=== PATIENT | female | born 1960 ===

== ENCOUNTER 2016-05-22 12:50 | Observation (INO) | payer MEDICARE, OTHER ==
[2016-05-22 13:23] LABS: Hematocrit 36.7 % (37.0-47.0); Hemoglobin 11.2 gm/dL (12.5-16.0); Mean Cell Volume 92.2 fl (78-100); Mean Corpuscular Hemoglobin 28.1 pg (27-31); Mean Corpuscular Hgb Conc 30.5 g/dl (32-36); Mean Platelet Volume 11.9 fl (6.0-9.5); Neutrophil % 48.6 % (42-75.0); Platelet Count 139 K/mm3 (150-450); Red Blood Count 3.98 M/mm3 (4.2-5.4); Red Cell Distribution Width 14.3 % (11.5-14.0); White Blood Count 6.2 K/mm3 (4.0-10.5)
[2016-05-22 13:31] LABS: INR 0.97 INR (0.90-1.10); Prothrombin Time (Patient) 10.1 Seconds (9.4-11.4)
[2016-05-22 13:38] LABS: BUN/Creatinine Ratio 18.6 (9.0-21.6); Blood Urea Nitrogen 19 mg/dL (3-23); Glucose * 94 mg/dL (70-110); Sodium 145 mmol/L (132-142)
[2016-05-22 13:39] LABS: ALT 18 U/L (19-67); AST 17 U/L (0-48); Albumin * 3.3 gm/dl (3.4-5.0); Alkaline Phosphatase * 78 U/L (50-170); Anion Gap 13.7 mmol/L (6.8-13.8); Bilirubin, Total 0.2 mg/dL (0.0-1.1); Ca. Corrected For Albumin 8.2 mg/dL (8.4-10.2); Carbon Dioxide 27.7 mmol/L (24-32.6); Chloride 108 mmol/L (97-106); Potassium 4.4 mmol/L (3.4-4.6); Total Protein 6.3 gm/dL (6.2-8.2); Troponin I Less than 0.017 ng/ml (0.00-0.10)
[2016-05-22] MEDS ORDERED: NITROGLYCERIN 0.4 MG/TAB BTL SL ONE ×3 (13:59→14:18)
--- NOTE | 2016-05-22 14:05 | ERNOTE ---
Chest Pain/Cardiac HPI Chief Complaint: Chest Pain Time Seen by Provider: 05/22/16 13:51 Source: patient Exam Limitations: no limitations Immunizations: IMMUNIZATION HX Immunizations Up to Date Yes History of Influenza Vaccine Yes Hx Pneumococcal Vaccination Yes Allergies/Adverse Reactions: Allergies aspirin Allergy (Verified 05/22/16 13:06) Hives Narrative: Patient is here for pain below her left breast that woke her up in the night. She has some nausea with it, it reminds her of the symptoms she had before she had a stent placed a few years ago. She is being followed by a route specialist in [place] Date (Duration): 05/22/16 Time (Timing): 03:30 Timing: constant - pressure with intermittent sharp pain Location: left chest Chest Pain Radiation: no radiation Activities at Onset: none, sleep Modifying Factors - Improves: Present: nothing Modifying Factors - Worsens: Present: nothing Nitro Today/Relief: no nitro taken today Aspirin Treatment Today: no aspirin today - is allergic Associated Symptoms: Present: nausea. Absent: headache, dizziness, shortness of breath, diaphoresis, fever/chills, vomiting, abdominal pain Prior Chest Pain/Cardiac Workup: Reports: prior chest pain, heart attack Review of Systems - Review of Systems Constitutional: Absent: recent illness, fever ENT: Absent: nose congestion, sore throat Respiratory: Absent: shortness of breath Cardiology: Present: See HPI, chest pain Gastrointestinal/Abdominal: Present: nausea. Absent: vomiting, diarrhea, abdominal pain Neurological: Absent: headache - Patient's Past Medical History Patient History - Medical: Diabetes Type 2, Other Patient History - Cardiac/Respiratory: Coronary Heart Disease Patient History - Cancer: Cervical, Other Patient History - Surgical Procedures: Cardiac stent, Hysterectomy Patient History - Other: None LMP (females 10-50): Menopausal - Social History Living Situations: home Abuse History: No History of abuse Psych History: No pertinent hx Smoking Status: Former smoker Alcohol Use: rarely Drug Use: none - Immunizations Immunizations Up to Date: Yes Hx Pneumococcal Vaccination: Yes History of Influenza Vaccine: Yes Physical Exam - Physical Exam General Appearance: Present: wd/wn, alert, no apparent distress Eye Exam: Normal inspection: bilateral, PERRL: bilateral Respiratory: Present: no respiratory distress, normal breath sounds, no accessory muscle use, chest nontender, lungs clear Cardiovascular/Chest: Present: regular rate, rhythm, no murmur Gastrointestinal/Abdominal: Present: normal bowel sounds, nontender, nondistended, soft Extremity Exam: Present: no edema Neurological Exam: Present: alert, oriented, normal mood/affect Skin Exam: Present: normal color, warm/dry ED Progress - Results and Orders Patient's Lab Results:: I have reviewed the patient's lab results. - Vital Signs Patient's Vital Signs:: I have reviewed the patient's vital signs. Vital Signs: Vital Signs 05/22/16 05/22/16 12:57 13:10 Temperature 36.2 C L Pulse Rate 67 63 Respiratory 17 Rate Blood Pressure 126/71 O2 Sat by Pulse 99 Oximetry - EKG EKG: NSR, other - no acute findings EKG read: Interp. by me - X-Ray X-Ray #1 X-Ray: chest - chronic changes, right basilar nodule Interpretation: Reviewed by me - Progress/Reassessment Chief Complaint: Chest Pain Progress Note-Subjective: 05/22/16 14:09 pain better after first nitro 05/22/16 15:26 pain almost resolved, discussed admission here for observation vs transferring to [place] where her route specialist is, decided on admission here 05/22/16 15:[address] Powers,okay to admit for chest pain rule out Departure - Departure Clinical Impression: Chest pain Qualifiers: Chest pain type: precordial pain Qualified Code(s): R07.2 - Precordial pain Disposition: [facility] Condition: Good
--- OUTSIDE RECORDS SUMMARY | 2016-05-22 16:17 | XMS REPORT | Continuity of Care Document ---
:1960 Author Organization [facility] ([facility]) Address [address] [place] [address] Phone [phone] Care Team Providers Name Role Phone Zachery Jose Primary Care Provider [phone] Source Comments This disclosure is being made pursuant to the Care Everywhere program, applicable federal and state laws, and may not contain all informaitonavailable regarding this patient.[facility] ([facility]) Active Allergies and Adverse Reactions Allergen Noted Date Severity Reactions Comments Aspirin Respiratory Distress,Angioedema,Nausea & Vomiting Current Medications Prescription Sig. Disp. Refills Start Date End Date Status estrogens, conjugated take 0.3 mg by mouth Active (PREMARIN) 0.3 mg daily. tablet travoprost (TRAVATAN) Instill 1 Drop onto Active 0.004 % Drop both eyes at bedtime furosemide (LASIX) 40 Take 40 mg by mouth Active mg tablet daily. gabapentin Take 2 Tabs by mouth 180 Tab 11 09/27/2009 Active (NEURONTIN) 600 mg 3 times daily. tablet Indications: Neuropathic Pain prasugrel (EFFIENT) Take 10 mg by mouth Active 10 mg tablet daily fentanyl 25 mcg/hr Apply 25 mcg on the Active patch skin every 72 hours cyclobenzaprine 10 mg Take 20 mg by mouth Active tablet at bedtime docusate 100 mg Take 100 mg by mouth Active capsule 2 times daily as needed levothyroxine 150 mcg Take 150 mcg by mouth Active tablet every morning before breakfast lisinopril 10 mg Take 10 mg by mouth Active tablet daily metoPROLol tartrate Take 25 mg by mouth 2 Active 25 mg tablet times daily insulin regular Inject subcutaneously Active (HumuLIN R) 100 3 times daily before unit/mL injection meals vial omeprazole 20 mg Take 20 mg by mouth 2 Active enteric coated times daily capsule oxyCODONE-acetaminoph Take 2 tablets by Active en 10-325 mg per mouth 2 times daily tablet potassium chloride 10 Take 20 mEq by mouth Active mEq XR tablet daily sennosides 8.6 mg Take 1 tablet by Active tablet mouth daily as needed simvastatin 40 mg Take 40 mg by mouth Active tablet every evening donepezil 10 mg Take 10 mg by mouth Active tablet at bedtime fluticasone 50 Use 2 Sprays into Active mcg/Actuation nasal both nostrils daily spray as needed isosorbide Take 60 mg by mouth Active mononitrate 60 mg CR Every morning tablet nitroglycerin 0.[address] 0.4 mg under Active SL tablet the tongue every 5 minutes as needed vilazodone (VIIBRYD) Take 40 mg by mouth Active 40 mg tablet daily cyanocobalamin Inject 1,000 mcg Active (VITAMIN B-12) 1000 intramuscularly every mcg/mL injection month Active Problems Problem Noted Date Essential hypertension 12/27/2014 Coronary artery disease without angina pectoris 12/27/2014 Overview: Patient presented to [place], [place] for fatigue evaluation. Stress test abnormal. S/p PCI to LAD and OM. Hyperlipidemia with target LDL less than 70 12/27/2014 Hypothyroidism 12/27/2014 Neuropathic pain 12/27/2014 Chronic radicular low back pain 12/27/2014 S/P lumbar spinal fusion 12/03/2008 Resolved Problems Problem Noted Date Resolved Date Type 2 diabetes mellitus with hyperglycemia 12/27/2014 12/27/2014 Nonspecific chest pain 12/26/2014 12/27/2014 Neck and shoulder pain 12/26/2014 12/27/2014 Surgical wound infection 12/20/2008 12/27/2014 Hypotension 12/20/2008 12/20/2008 Anemia 12/20/2008 12/27/2014 Hypomagnesemia 12/20/2008 12/27/2014 Protein calorie malnutrition 12/20/2008 12/27/2014 Lactic acidosis 12/20/2008 12/20/2008 Gram-positive bacteremia 12/19/2008 12/27/2014 Acute respiratory insufficiency 12/03/2008 12/27/2014 Diabetes mellitus 12/03/2008 12/27/2014 Hypertension 12/03/2008 12/27/2014 Immunizations Name Dates Previously Given Next Due Influenza 12/29/2008 Pneumococcal Polysaccharide, PPSV23 (Pneumovax 23) 12/26/2008 Social History Tobacco Use Types Packs/Day Years Used Date Former Smoker Cigarettes 2 25 Smokeless Tobacco: Never Used Tobacco Cessation:Counseling Given: Yes Comments:quit smoking 7 years ago Alcohol Use Drinks/Week oz/Week Comments No Last Filed Vital Signs Vital Sign Reading Time Taken Blood Pressure 134/71 01/25/2015 3:29 PM HANDLE AND VENT MACHINE OPERATOR Pulse 69 01/25/2015 3:29 PM HANDLE AND VENT MACHINE OPERATOR Temperature 35.9 C (96.6 F) 01/25/2015 3:29 PM HANDLE AND VENT MACHINE OPERATOR Respiratory Rate 14 12/27/2014 2:18 PM CDT Height 1.71 m (5' 7.32") 01/25/2015 3:29 PM HANDLE AND VENT MACHINE OPERATOR Weight 80.8 kg (178 lb 2.1 oz) 01/25/2015 3:29 PM HANDLE AND VENT MACHINE OPERATOR Body Mass Index 27.63 01/25/2015 3:29 PM HANDLE AND VENT MACHINE OPERATOR Oxygen Saturation 96% 12/27/2014 2:18 PM CDT Plan of Care Date Type Specialty Providers Description 06/07/2016 Appointment Diabetes Services Default, Other Bill[facility] - [facility] [address] [place] [address] [phone] (Fax) Chief Comp: Patient Latanya Gonzales PA-C [address] [place] [address] [phone] (Fax) Reported Reason For Visit 06/07/2016 Appointment Diabetes Services Default, Other Billg - [address] [address] [place] [address] [phone] (Fax) Chief Comp: Patient Leta Enciso, RD LD [address] [place] [address] [phone] (Fax) Reported Reason For Visit Health Maintenance Due Date Last Done Comments HCV Screening 1960 Hepatitis B Vaccine (1 of 3 - Primary 1960 Series) Tdap Vaccine 1972 DIABETIC: Microalbumin 09/24/1979 MMR Vaccine 09/24/1979 Td Vaccine 09/24/1979 Cervical Cancer Screening 09/24/1991 Mammogram 2001 DIABETIC: Foot Exam 09/05/2010 DIABETIC: Retinal Eye Exam 09/05/2010 Colonoscopy 2011 DIABETIC: Hemoglobin A1C 06/28/2015 12/27/2014, 12/26/2014 Influenza Vaccine: Seasonal (#1) 10/24/2015 12/29/2008 DIABETIC: Cholesterol 12/28/2015 12/27/2014 Diabetic: Hdl 12/28/2015 12/27/2014 Diabetic: Ldl 12/28/2015 12/27/2014 DIABETIC: Triglycerides 12/28/2015 12/27/2014, 12/29/1997 Pneumococcal Vaccine Completed 12/26/2008 Results from Last 3 Months Not on file
--- OUTSIDE RECORDS SUMMARY | 2016-05-22 16:17 | XMS REPORT | Continuity of Care Document ---
:1960 Author Organization [facility] [place] [address] Care Team Providers Name Role Phone Jose Bingham Primary Care Provider [phone] Source Comments This disclosure is being made pursuant to the [employer] program and maynot contain all information available regarding this patient.[facility] Active Allergies and Adverse Reactions Allergen Noted Date Severity Reactions Comments Aspirin 10/17/2014 High Shortness Of Breath Bee Venom 10/17/2014 High Swelling Current Medications Be aware that medications may not be up to date as of this document. Alwaysverify current medications with the patient. Prescription Sig. Disp. Refills Start Date End Date Status estrogens, conjugated, Take 0.3 mg by Active (PREMARIN) 0.3 MG mouth daily. tablet vitamin B-12 Inject 1,000 mcg Active (CYANOCOBALAMIN) 1000 as directed MCG/ML injection every 30 (thirty) days. cyclobenzaprine Take 10 mg by Active (FLEXERIL) 10 MG mouth 3 (three) tablet times daily. Instructino: Take 1 tab po bid and 2 tabs po at bedtime.Patient states that she is just taking them at bedtime due to sleepiness During day. diclofenac (VOLTAREN) Take 75 mg by Active 75 MG EC tablet mouth 2 (two) times daily. donepezil (ARICEPT) 10 Take 10 mg by Active MG tablet mouth daily with breakfast. furosemide (LASIX) 40 Take 40 mg by Active MG tablet mouth daily. gabapentin (NEURONTIN) Take 1,800 mg by Active 600 MG tablet mouth 2 (two) times daily. HYDROcodone-acetaminop Take 2 tablets Active hen (NORCO) 5-325 MG by mouth 2 (two) per tablet times daily. insulin regular Inject as Active (NOVOLIN R RELION) 100 directed. Has UNIT/ML injection sliding scale lisinopril Take 10 mg by Active (PRINIVIL,ZESTRIL) 10 mouth daily. MG tablet metoprolol tartrate Take 25 mg by Active (LOPRESSOR) 25 MG mouth 2 (two) tablet times daily. nitroGLYCERIN Place 0.4 mg Active (NITROSTAT) 0.4 MG SL under the tongue tablet as needed. Take 1 tab under the tongue every 5 minutes prn for chest pain. If no relief after 3 doses, seek medical attention potassium chloride ER Take 20 mEq by Active 20 MEQ TBCR tablet mouth daily. prasugrel HCl Take 10 mg by Active (EFFIENT) 10 MG tablet mouth daily. simvastatin (ZOCOR) 40 Take 40 mg by Active MG tablet mouth nightly. travoprost, MARÍA Free, Place 1 drop Active (TRAVATAN Z) 0.004 % into both eyes SOLN ophthalmic nightly. 1 drop solution to both eyes at bedtime. vilazodone HCl Take 40 mg by Active (VIIBRYD) 40 MG TABS mouth nightly. omeprazole (PRILOSEC) TAKE TWO 180 capsule 5 02/20/2014 Active 20 MG capsule CAPSULES BY MOUTH DAILY isosorbide mononitrate TAKE 1 TABLET BY 30 tablet 0 07/05/2014 Active (IMDUR) 60 MG 24 hr MOUTH EVERY DAY tablet fentaNYL (DURAGESIC) Place 1 patch Active 25 MCG/HR onto the skin every third day. oxyCODONE-acetaminophe Take 1 tablet by Active n (PERCOCET) 10-325 MG mouth 3 (three) per tablet times daily. 2 tabs together in the AM and 1 tab at night EPINEPHrine (EPIPEN) Inject 0.3 mg Active 0.3 MG/0.3ML SOAJ into the muscle injection once. levothyroxine Take 150 mcg by Active (SYNTHROID, mouth every LEVOTHROID) 150 MCG morning. tablet tiZANidine (ZANAFLEX) Take 2 mg by Active 4 MG tablet mouth every 8 (eight) hours as needed for Muscle spasms. 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 Lumbar post-laminectomy syndrome 05/30/2015 Cervical spondylosis without myelopathy 05/30/2015 Thoracic back pain 05/30/2015 Lumbar spinal stenosis 11/08/2014 Esophageal reflux 10/15/2012 Overview: Overview: SEAMUS HIGGINBOTHAM MD Obesity 10/15/2012 Overview: Overview: KAROL PAINTING MD Coronary atherosclerosis of [place] coronary artery 05/26/2012 Overview: Overview: MARLO HOLDEN Hyperlipidemia 05/26/2012 Overview: Overview: MARLO HOLDEN Essential hypertension 05/26/2012 Overview: Overview: MARLO HOLDEN Most Recent Encounters Date Type Specialty Providers Description 04/30/2016 Clinical Support Family Medicine Apple Ricks Coronary artery disease involving [place] coronary artery of [place] heart, angina presence unspecified (Primary Dx) 03/08/2016 Data Import Immunizations Name Dates Previously Given Next Due Influenza Split 12/10/2012,05/18/2012 Social History Tobacco Use Types Packs/Day Years Used Date Former Smoker Smokeless Tobacco: Never Used Alcohol Use Drinks/Week oz/Week Comments Yes 1-2 beers 4-6 days per week Last Filed Vital Signs Vital Sign Reading Time Taken Blood Pressure 118/70 06/21/2015 2:47 PM CDT Pulse 68 05/17/2015 3:05 PM RECORDS MANAGEMENT DIRECTOR Temperature 36.2 C (97.1 F) 11/08/2014 10:29 AM CDT Respiratory Rate 18 05/17/2015 3:05 PM RECORDS MANAGEMENT DIRECTOR Height 1.702 m (5' 7") 06/21/2015 2:47 PM CDT Weight 80.74 kg (178 lb) 06/21/2015 2:47 PM CDT Body Mass Index 27.87 06/21/2015 2:47 PM CDT Oxygen Saturation 100% 10/17/2014 6:45 PM CDT Plan of Care Health Maintenance Due Date Last Done Comments Lab-Lipids 1960 LAB-HgA1C 1966 Eye (Ophthalmology) Exam 09/24/1971 Foot Exam 09/24/1971 Lab-Urine Microalbumin 09/24/1971 Hepatitis C Screening 09/24/1979 Tetanus/Pertussis (1 - Tdap) 1980 Pap Smear 1982 Colonoscopy 09/24/2011 Mammogram 09/24/2011 Well Adult Visit 09/24/2011 Influenza Immunization (#1) 2015 12/10/2012, 05/18/2012 Results from Last 3 Months Not on file
--- OUTSIDE RECORDS SUMMARY | 2016-05-22 16:30 | XMS REPORT | Continuity of Care Document ---
:1960 Author Organization [facility] ([facility]) Address [address] [place] [address] Phone [phone] Care Team Providers Name Role Phone Zachery Jose Primary Care Provider [phone] Source Comments This disclosure is being made pursuant to the Care Everywhere program, applicable federal and state laws, and may not contain all informaitonavailable regarding this patient.[facility] ([facility]) Active Allergies and Adverse Reactions Allergen Noted [...] angina pectoris 12/27/2014 Overview: Patient presented to [place], [place] for fatigue evaluation. Stress test abnormal. [...] Taken Blood Pressure 134/71 01/25/2015 3:29 PM INSIDE ACCOUNT EXECUTIVE Pulse 69 01/25/2015 3:29 PM INSIDE ACCOUNT EXECUTIVE Temperature 35.9 C (96.6 F) 01/25/2015 3:29 PM INSIDE ACCOUNT EXECUTIVE Respiratory Rate 14 12/27/2014 2:18 PM CDT Height 1.71 m (5' 7.32") 01/25/2015 3:29 PM INSIDE ACCOUNT EXECUTIVE Weight 80.8 kg (178 lb 2.1 oz) 01/25/2015 3:29 PM INSIDE ACCOUNT EXECUTIVE Body Mass Index 27.63 01/25/2015 3:29 PM INSIDE ACCOUNT EXECUTIVE Oxygen Saturation 96% 12/27/2014 2:18 PM CDT Plan of Care Date Type Specialty Providers Description 06/07/2016 Appointment Diabetes Services Default, Other Billg - [facility] [address] [place] [address] [phone] (Fax) Chief Comp: Patient Latanya Gonzales PA-C [address] [place] [address] [phone] (Fax) Reported Reason For Visit 06/07/2016 Appointment Diabetes Services Default, Other Billg - [address] [place] [address] [phone] (Fax) Chief Comp: Patient Leta Enciso, RD LD [address] [place] [address] [phone] (Fax) Reported Reason For Visit Health Maintenance [...]
--- OUTSIDE RECORDS SUMMARY | 2016-05-22 16:30 | XMS REPORT | Continuity of Care Document ---
:1960 Author Organization [facility] [place] [address] Care Team Providers Name Role Phone Jose Bingham Primary Care Provider [phone] Source Comments This disclosure is being made pursuant to the [employer] program and maynot contain all information available regarding this patient.[facility] Active Allergies and Adverse Reactions Allergen Noted [...] Overview: KAROL PAINTING MD Coronary atherosclerosis of [place] coronary artery 05/26/2012 Overview: Overview: MARLO HOLDEN Hyperlipidemia 05/26/2012 Overview: Overview: MARLO HOLDEN Essential hypertension 05/26/2012 Overview: Overview: MARLO HOLDEN Most Recent Encounters Date Type Specialty Providers Description 04/30/2016 Clinical Support Family Medicine Apple Ricks Coronary artery disease involving [place] coronary artery of [place] heart, angina presence unspecified (Primary Dx) 03/08/2016 [...] PM CDT Pulse 68 05/17/2015 3:05 PM TUBE AND MANIFOLD BUILDER Temperature 36.2 C (97.1 F) 11/08/2014 10:29 AM CDT Respiratory Rate 18 05/17/2015 3:05 PM TUBE AND MANIFOLD BUILDER Height 1.702 m (5' 7") 06/21/2015 2:47 [...]
[2016-05-22] MEDS ORDERED: ONDANSETRON 4 MG TAB.RAPDIS PO PRN (21:49)
[2016-05-22] MEDS ORDERED: NITROGLYCERIN 0.4 MG/TAB BTL SL PRN (21:49)
[2016-05-22] MEDS ORDERED: hydrOXYzine HCL 25 MG TABLET PO PRN (21:49)
[2016-05-22] MEDS ORDERED: fentaNYL 50 MCG PATCH.TD72 TD SCH (22:00)
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
[2016-05-23 06:35] LABS: Anion Gap 8.8 mmol/L (6.8-13.8); BUN/Creatinine Ratio 20.2 (9.0-21.6); Blood Urea Nitrogen 17 mg/dL (3-23); Calcium * 8.4 mg/dL (7.9-10.9); Carbon Dioxide 29.7 mmol/L (24-32.6); Chloride 108 mmol/L (97-106); Chol/HDL Risk Ratio 3.7 mg/dL (3.3-4.4); Cholesterol 160 mg/dL (0-200); Estimated Creat Clear 77.2; Glucose * 92 mg/dL (70-110); HDL Cholesterol 43 mg/dL (40-60); LDL Cholesterol 72 mg/dL (70-130); Potassium 4.5 mmol/L (3.4-4.6); Sodium 142 mmol/L (132-142); Triglycerides 225 mg/dL (30-200); Troponin I Less than 0.017 ng/ml (0.00-0.10); VLDL Cholesterol 45 mg/dL (5-40)
[2016-05-23] MEDS ORDERED: PANTOPRAZOLE SODIUM 40 MG TABLET.EC PO SCH (07:00)
[2016-05-23] MEDS ORDERED: LEVOTHYROXINE SODIUM 100 MCG TABLET PO SCH (07:00)
[2016-05-23] MEDS: tiZANidine HCL 4 MG TABLET PO SCH ×3 (08:32→17:42)
[2016-05-23] MEDS: GABAPENTIN 600 MG TABLET PO SCH ×3 (08:33→17:41)
[2016-05-23] MEDS: oxyCODONE HCL/ACETAMINOPHEN 1 TAB TABLET PO SCH ×3 (08:37→17:41)
[2016-05-23] MEDS ORDERED: LISINOPRIL 10 MG TABLET PO SCH (09:00)
[2016-05-23] MEDS ORDERED: POLYETHYLENE GLYCOL 3350 119 GM BTL PO SCH (09:00)
[2016-05-23] MEDS ORDERED: POTASSIUM CHLORIDE 20 MEQ TABLET.SA PO SCH (09:00)
[2016-05-23] MEDS ORDERED: METOPROLOL TARTRATE 25 MG TABLET PO SCH (09:00)
[2016-05-23] MEDS ORDERED: PRASUGREL 10 MG PO SCH (09:00)
[2016-05-23] MEDS ORDERED: FUROSEMIDE 40 MG TABLET PO SCH (09:00)
[2016-05-23] MEDS ORDERED: OMEPRAZOLE 20 MG CAPSULE.SA PO SCH (09:00)
[2016-05-23] MEDS ORDERED: DULoxetine HCL 30 MG CAPSULE.SA PO SCH ×2 (09:00→21:00)
[2016-05-23] MEDS ORDERED: ESTROGENS, CONJUGATED 0.3 MG TABLET PO SCH (09:00)
[2016-05-23] MEDS ORDERED: GABAPENTIN 600 MG TABLET PO SCH (09:00)
[2016-05-23] MEDS ORDERED: DICLOFENAC SODIUM 75 MG TABLET.DR PO SCH (09:00)
[2016-05-23] MEDS ORDERED: Regadenoson 0.1 MG UNIT IV ONE (10:15)
[2016-05-23] MEDS ORDERED: Regadenoson 0.08 MG/ML SYRG IV ONE (10:15)
[2016-05-23] MEDS ORDERED: ONDANSETRON HCL/PF 2 MG/ML VIAL IV PRN (13:58)
[2016-05-23 15:27] VITALS: BP 110/36
--- NOTE | 2016-05-23 16:19 | DS ---
(1) Chest pain, unspecified Problem: Acute Qualifiers: Chest pain type: unspecified Qualified Code(s): R07.9 - Chest pain, unspecified (2) CAD (coronary artery disease) Problem: Chronic Qualifiers: Coronary Disease-Associated Artery/Lesion type: [place] artery (3) Hypertension Problem: Chronic Qualifiers: Hypertension type: essential hypertension Qualified Code(s): I10 - Essential (primary) hypertension (4) Hyperlipidemia Problem: Chronic (5) Chronic low back pain Problem: Chronic Qualifiers: Back pain laterality: unspecified (6) Hypothyroidism Problem: Chronic Qualifiers: Hypothyroidism type: unspecified Qualified Code(s): E03.9 - Hypothyroidism , unspecified Description of Stay: DATE OF ADMISSION: 05/22/2016. DATE OF DISCHARGE: 05/23/2016. HOSPITAL COURSE: Milka Harvey is a 55-year-old WF with a H/O CAD [stents 3 -2013], HTN, HLD, hypothyroidism, Chronic LBP on pain medications, anxiety/depression who was admitted through the ER for chest pain at rest associated with mild nausea, stabbing in nature, radiating to the neck w/o vomiting/ palpitations/ diaphoresis. She did not take NTG at home however had prompt relief of symptoms when given NTG in ER. EKG -no acute changes and serial troponins were negative. CXR : possible 9mm right basilar pulmonary nodule vs artifact F/U with routine CT chest. The patient was discharged in a stable condition to be followed up with her PCP/ hazardous materials tanker driver in [place] in 10-14 days to see if she would require further workup. Procedures Performed: none Results and Findings: Laboratory Tests 05/22/16 13:15 WBC 6.2 Hgb 11.2 L Hct 36.7 L MCV 92.2 Plt Count 139 L 05/22/16 05/23/16 13:15 06:02 Plasma Sodium 145 H 142 Potassium 4.4 4.5 Chloride 108 H 108 H Carbon Dioxide 27.7 29.7 BUN 19 17 Creatinine 1.02 0.84 Est GFR (Non-Af Amer) 60 75 D Random Glucose 94 Calcium Adj for Albumin 8.2 L Total Bilirubin 0.2 AST 17 ALT 18 L Alkaline Phosphatase 78 Total Protein 6.3 Albumin 3.3 L 05/22/16 05/22/16 13:15 21:20 Troponin I Less than 0.017 Less than 0.017 05/23/16 06:02 Triglycerides 225 H Cholesterol 160 LDL Cholesterol 72 VLDL Cholesterol 45 H HDL Cholesterol 43 Discharge Disposition: Home self care Disposition: Home self-care Condition: Undetermined Discharge Diet: Low salt, Low fat/chol, High Fiber Problem Oriented Discharge Instructions to Patient/Family: Chest Wall Pain, [place] Additional Patient Instructions (free text): Please keep appointment with PCP/hazardous materials tanker driver OR make one in 10-14 days. NO NEW MEDICATIONS. Complete Home Medications List: Complete Home Medication List: Diclofenac Sodium [Voltaren] 75 mg PO BID 05/22/16 Donepezil HCl [Aricept] 10 mg PO HS 05/22/16 Duloxetine HCl [Cymbalta] 90 mg PO HS 05/22/16 Estrogens, Conjugated [Premarin] 0.3 mg PO DAILY 05/22/16 Furosemide [Lasix] 40 mg PO DAILY 05/22/16 Gabapentin [Neurontin] 3 tab PO TID 05/22/16 Isosorbide Mononitrate [Imdur] 60 mg PO HS 05/22/16 Levothyroxine Sodium [Synthroid] 100 mcg PO DAILY 05/22/16 Lisinopril [Zestril] 10 mg PO DAILY 05/22/16 Metoprolol Tartrate [Lopressor] 25 mg PO BID 05/22/16 Nitroglycerin [Nitrostat] 0.4 mg SL Q5MIN PRN 05/22/16 Omeprazole [Prilosec] 40 mg PO DAILY 05/22/16 Ondansetron [Zofran Odt] 4 mg PO Q8H PRN 05/22/16 Polyethylene Glycol 3350 [Miralax] 17 gm PO DAILY PRN 05/22/16 Potassium Chloride [K-Dur] 20 meq PO DAILY 05/22/16 Prasugrel HCl [Effient] 10 mg PO DAILY 05/22/16 Simvastatin [Zocor] 60 mg PO HS 05/22/16 fentaNYL [Duragesic] 50 mcg TD Q72H 05/22/16 hydrOXYzine HCL [Atarax] 25 mg PO Q6H PRN 05/22/16 oxyCODONE HCL/ACETAMINOPHEN [Percocet 10-325 mg Tablet] 2 each PO TID 05/22/16 tiZANidine HCL [Zanaflex] 4 mg PO TID 05/22/16
[2016-05-23] MEDS ORDERED: SIMVASTATIN 40 MG TABLET PO SCH (21:00)
[2016-05-23] MEDS ORDERED: ISOSORBIDE MONONITRATE 60 MG TAB.SR.24H PO SCH (21:00)
[2016-05-23] MEDS ORDERED: DONEPEZIL HCL 10 MG TABLET PO SCH (21:00)
[2016-05-23] MEDS ORDERED: SIMVASTATIN 20 MG TABLET PO SCH (21:00)
[2016-05-24] MEDS ORDERED: POLYETHYLENE GLYCOL 3350 119 GM BTL PO SCH (09:00)
== END 2016-05-23 18:09 | disposition home or self-care (01) ==
LOC: ER 12:50 → MS 15:47
PROVIDERS: ADMIT Internal Medicine; ATTEND Internal Medicine
DX: R07.9 Chest pain, unspecified (principal); I25.10 Atherosclerotic heart disease of native coronary artery without angina pectoris; I10 Essential (primary) hypertension; Z87.891 Personal history of nicotine dependence; E11.9 Type 2 diabetes mellitus without complications; E78.5 Hyperlipidemia, unspecified; M54.5 Low back pain; E03.9 Hypothyroidism, unspecified
CPT/HCPCS: 36415; 71020; 78452; 80048; 80053; 80061; 84484; 85025; 85610; 85730; 93005; 93017; 96374; 99284; A9502; G0378